=== PATIENT | female | born 1990 | race Caucasian/White ===

== ENCOUNTER 2018-06-25 10:25 | Outpatient (CLI) | payer OTHER ==
--- NOTE | 2018-06-25 16:18 | NM ---
THREE PHASE BONE SCAN 06/25/18 INDICATION: Right foot contusion. COMPARISON: None. RADIOPHARMACEUTICAL: 28.5 millicuries of technetium 99m MDP IV. FINDINGS: When reviewing the blood flow and blood pool images, there is symmetric activity seen within both low er extremities. There is no focal accumulation of radiotracer seen within the feet. Excretory activit y seen at the level of the bladder. No suspicious activity is seen involving the remainder of the axi llary or appendicular skeleton. IMPRESSION: Normal three phase bone scan. POS: CARLOS EDUARDO
== END 2018-06-25 10:26 | disposition home or self-care (01) ==
LOC: NM 10:25
PROVIDERS: ATTEND Chiropractor
DX: S90.31XA Contusion of right foot, initial encounter (principal); G90.521 Complex regional pain syndrome I of right lower limb; G57.91 Unspecified mononeuropathy of right lower limb
CPT/HCPCS: 78315; A9503

== ENCOUNTER 2023-05-29 13:44 | Outpatient (CLI) | payer BC | END 2023-05-29 13:45 | disposition home or self-care (01) | LOC: SCSRAD 13:44 | PROVIDERS: ATTEND Nurse Practitioner Family | DX: S69.91XA Unspecified injury of right wrist, hand and finger(s), initial encounter (principal); M25.521 Pain in right elbow ==